=== PATIENT | male | born 1945 | race Caucasian/White ===

== ENCOUNTER 2017-08-25 07:50 | Observation (INO) | payer BC ==
--- NOTE | 2017-08-25 08:05 | Emergency Department Record ---
History of Present Illness - General Chief Complaint: Chest Pain Stated Complaint: CHEST PAIN Time Seen by Provider: 08/25/17 07:58 Source: Patient Mode of Arrival: Ambulatory Limitations: No limitations - History of Present Illness Initial Comments: 72 yo male presents with palpitations, chest heaviness and feeling short of breath. The onset was yesterday at 10am after clearing snow from his driveway. He states he was asymptomatic during his exertion. He noted the onset after coming inside to rest. He feels worse with activity or exertion. He has a history of CAD with a stent. He has a history of afib, prior cardioversion. His machinery mechanic is Dr Elena. He has been working with his doctor recently with new medication changes for his atrial fibrillation. He is on Plavix and Xarelto. No edema. MD Complaint: Chest pain, Other (Palpitations) -: Hour(s) (20) Onset: During exertion Pain Location: Substernal Pain Radiation: None Severity: Moderate Quality: Heaviness Consistency: Intermittent Improves With: Remaining still Worsens With: Exertion, Movement Context: New medications Anginal Symptoms: Dyspnea Treatments Prior to Arrival: None - Related Data Home Medications Medication Instructions Recorded Confirmed Last Taken Amlodipine Besylate 5 mg PO DAILY 08/25/17 08/25/17 Unknown Atorvastatin Calcium 40 mg PO QHS 08/25/17 08/25/17 Unknown Citalopram Hydrobromide [Celexa] 20 mg PO DAILY 08/25/17 08/25/17 Unknown Clopidogrel Bisulfate [Plavix] 75 mg PO DAILY 08/25/17 08/25/17 Unknown Flecainide Acetate 50 mg PO DAILY 08/25/17 08/25/17 Unknown Gabapentin [Neurontin] 600 mg PO TID 08/25/17 08/25/17 Unknown Levothyroxine Sodium 125 mcg PO DAILY 08/25/17 08/25/17 Unknown Rivaroxaban [Xarelto] 20 mg PO DAILY 08/25/17 08/25/17 Unknown Allergies Allergy/AdvReac Type Severity Reaction Status Date / Time NO KNOWN DRUG ALLERGY Allergy no Uncoded 08/25/17 08:05 allergies Review of Systems Constitutional: Denies: Chills, Fever, Night sweats, Weakness Eyes: Denies: Eye discharge, Eye pain, Photophobia, Vision change ENT: Denies: Congestion, Throat pain Respiratory: Reports: Dyspnea. Denies: Cough, Hemoptysis, Stridor, Wheezes Cardiovascular: Reports: Arrhythmia, Chest pain, Dyspnea on exertion, Palpitations. Denies: Edema, Syncope Endocrine: Reports: Fatigue Gastrointestinal: Denies: Abdominal pain, Diarrhea, Nausea, Vomiting Genitourinary: Denies: Dysuria, Frequency, Hematuria Musculoskeletal: Denies: Arthralgia, Back pain, Joint swelling, Myalgia Skin: Denies: Bruising, Change in color, Rash Neurological: Denies: Headache, Numbness, Vertigo, Weakness Psychiatric: Denies: Anxiety Hematological/Lymphatic: Denies: Blood Clots, Easy bleeding, Easy bruising, Swollen glands Past Medical History - SOCIAL HISTORY Smoking Status: Current every day smoker Alcohol Use Comment: weekly Drug Use: None - RESPIRATORY Hx Respiratory Disorders: Yes Hx Asthma: No Hx Bronchitis: No Hx COPD: No Hx Dyspnea: No Hx Pneumonia: No Hx Pulmonary Embolism: No Hx Sleep Apnea: Yes Hx Tuberculosis: No Hx of CPAP: Yes - CARDIOVASCULAR Hx Cardio Disorders: Yes Hx Hypertension: Yes (good control with meds) Hx Irregular Heartbeat: Yes ("missed beat for years") Comment:: hyperlipidemia - NEURO Hx Neuro Disorders: No - GI Hx GI Disorders: Yes Hx Abdominal Pain: No Hx Celiac Disease: No Hx Crohn's Disease: No Hx Diverticulitis: Yes Hx GI Bleed: No Hx Reflux: No Hx Hepatitis/Jaundice: No Hx Hiatal Hernia: No Hx Irritable Bowel: No Hx Liver Disease: No Hx Nausea/Vomiting: No Hx Obstructive Bowel: No Hx Pancreatitis: No Hx Rectal Bleeding: No Hx Ulcer: No Hx Wt Loss/Wt Gain: No Hx of Polyps: Yes (1, 5 yrs ago) - Hx Genitourinary Disorders: No - ENDOCRINE Hx Endocrine Disorders: Yes Hx Diabetes: No Hx Thyroid Disease: Yes (hypo) - MUSCULOSKELETAL Hx Musculoskeletal Disorders: Yes Hx Arthritis: Yes (knee/neck) Hx Back Injury: No Hx Fibromyalgia: No Hx Gout: No Hx Musculoskeletal Disease: No Hx Osteoporosis: No - PSYCH Hx Psych Problems: Yes Hx Anxiety: Yes Hx Behavior Problems: No Hx Depression: No Hx Emotional Abuse: No Hx Sexual Abuse: No Hx Suicide Attempt: No - HEMATOLOGY/ONCOLOGY Hx Hematology/Oncology Disorders: No Family Medical History Hx Alcohol Use: Brother/Sister *Alcohol Comment: brother- Hx HTN: Mother Hx Kidney Disease: Mother Hx Liver Disease: Brother/Sister *Liver Comment: brother Hx Stroke: Father Physical Exam - General General Appearance: Alert, Oriented x3, Cooperative, No acute distress Limitations: No limitations - Head Head exam: Normal inspection - Eye Eye exam: Normal appearance, PERRL. negative: Conjunctival injection - ENT ENT exam: Normal exam, Mucous membranes moist Ear exam: Normal external inspection Nasal Exam: Normal inspection Mouth exam: Normal external inspection Teeth exam: Normal inspection - Neck Neck exam: Normal inspection, Full ROM. negative: Tenderness - Respiratory Respiratory exam: Normal lung sounds bilaterally. negative: Respiratory distress - Cardiovascular Cardiovascular Exam: Irregular rhythm, Tachycardia. negative: Regular rate, Normal rhythm Peripheral Pulses: 2+: Radial (R), Radial (L) - GI/Abdominal GI/Abdominal exam: Soft. negative: Distended, Guarding, Rebound, Rigid, Tenderness - Rectal Rectal exam: Deferred - exam: Deferred - Extremities Extremities exam: Normal inspection, Full ROM, Normal capillary refill. negative: Joint swelling, Pedal edema, Tenderness - Back Back exam: Reports: Normal inspection, Full ROM. Denies: Muscle spasm, Rash noted, Tenderness - Neurological Neurological exam: Alert, Normal gait, Oriented X3 - Psychiatric Psychiatric exam: Normal affect, Normal mood. negative: Agitated, Anxious - Skin Skin exam: Dry, Intact, Normal color, Warm Course - Reevaluation(s) Reevaluation #1: EKG 07:49 Atrial Fibrillation rate of 122, intervals Qt 480, Non specific charley -lateral changes. Prior EKG 10/21/16 was NSR Stress test 10/21/16 Inferior ischemic defect. Patient then had a cath with a stent by Dr Elena. 08/25/17 08:07 08/25/17 08:24 HR improved to 104 atrial fibrillation CBC reviewed. No acute changes 08/25/17 08:29 The CMP and magnesium were reviewed CR is 1.3 with prior CR of 1.2 08/25/17 08:35 The Troponin is normal at 0.01 The CXR was reviewed. No acute process. 08/25/17 08:51 BNP is 2128 I JODY Siddiqi of the admission service The patient will be admitted with a cardiology consult with Dr Elena. Medical Decision Making - Lab Data Result diagrams: 08/25/17 08:04 02/06/18 08:04 Disposition Disposition: Admit Clinical Impression: Atrial fibrillation with rapid ventricular response Chest pain Qualifiers: Chest pain type: other chest pain Qualified Code(s): R07.89 - Other chest pain ; R07.8 - Other chest pain Disposition: Still a Patient at [facility] Decision to Admit: Admit from ER Decision to Admit Date: 08/25/17 Decision to Admit Time: 09:03 Condition: (2) Stable Forms: Patient Portal Access Time of Disposition: 09:03 Quality - Quality Measures Quality Measures: N/A - Blood Pressure Screening Does Patient Have Any of the Following: Active Dx of HTN Blood Pressure Classification: Hypertensive Reading Systolic Measurement: 114 Diastolic Measurement: 99 Screening for High Blood Pressure: Patient Exclusion, Hx of HTN [[id number]]
[2017-08-25 08:08] LABS: BASO % 0.3 % (0-6); EOS % 4.2 % (0-6); GRAN % 72.9 % (47-80); HEMATOCRIT 40.6 % (42.0-52.0); HEMOGLOBIN 13.6 gm/dl (14.0-18.0); LYMPH % 14.4 % (16-45); MEAN CELL VOLUME 87.9 fl (81-97); MEAN CORPUSCULAR HEMOGLOBIN 29.4 pg (27-33); MEAN CORPUSCULAR HGB CONC 33.5 g/dl (32-36); MEAN PLATELET VOLUME 8.3 fl (7.4-10.4); MONO % 8.2 % (0-9); PLATELET COUNT 305 K/uL (130-400); RED BLOOD COUNT 4.62 M/uL (4.40-5.70); RED CELL DISTRIBUTION WIDTH 14.3 % (11.5-14.5); WHITE BLOOD COUNT W/O DIFF 8.9 K/uL (4.2-12.2)
[2017-08-25] MEDS ORDERED: DILTIAZEM HCL 125 MG in 0.9 % SODIUM CHLORIDE 100ML 100 ML IV SCH (08:15)
[2017-08-25 08:22] LABS: BLOOD UREA NITROGEN 24 mg/dL (8-23)
[2017-08-25 08:23] LABS: CREATININE 1.3 mg/dL (0.7-1.2); EST GLOMERULAR FILTRATION RATE 58 mL/min; TOTAL PROTEIN 7.4 g/dL (6.6-8.7)
[2017-08-25 08:25] LABS: GLUCOSE,RANDOM 150 mg/dL (74-109)
[2017-08-25 08:28] LABS: ALB/GLOB RATIO 1.2 (1.1-1.8); ALBUMIN 4.1 g/dL (4.0-5.0); ALKALINE PHOSPHATASE 89 U/L (40-129); ALT/SGPT 25 U/L (<41); AST/SGOT 19 U/L (10.0-50.0)
[2017-08-25 08:47] LABS: INR 1.05; PROTHROMBIN TIME (PATIENT) 11.4 SECONDS (9.5-12.1)
[2017-08-25] MEDS ORDERED: PROPOFOL 10 MG/ML VIAL IV ONE (09:52)
[2017-08-25] MEDS ORDERED: GABAPENTIN 300 MG CAPSULE PO PRN (10:35)
--- NOTE | 2017-08-25 12:58 | History & Physical ---
History of Present Illness - Date of Service Date of Service for History & Physical: 08/25/17 - History of Present Illness Admitting Diagnosis: atrial fibrillation with RVR,chest pain History of Present Illness: 72yo male with CC of palpitations. He has history of atrial fibrillation, htn, VALENTINE with cpap use, hypothyroidism, arthritis. Patient began having heart palpitations and feeling light headed yesterday afternoon after coming inside from shoveling snow. He says he had no chest pain or symptoms while actually shoveling, but after sitting down inside he began to feel lightheaded and like his heart was racing. He became tired and decided to take a nap. He felt better so took it easy the rest of the day. This morning he was feeling ok, but as soon as he got up from bed he had the same light-headed, dizzy feeling. He had felt this way before when he was in afib so came to the ED. While in the ED, he was found to be in afib with rapid rate. No ischemic changes. CBC and CMP were unremarkable. BNP elevated at 2128. CXR showed no acute infiltrate. 1st set of CE returned wnl. Patient started on cardizem drip with improvement in his rate and admitted for further observation and consultation with cardiology. 08/25/17- Patient states he is feeling ok. He says while laying down he doesn't have much light-headedness or palpitations, but any time he gets up out of bed those return. He has some chest heaviness, denies lower extremity swelling. He did have a recent change in his medications. He was going to be swtiching from sotalol to fleicanide however there was a 5 day gap in which he had no medication. His last stress test and heart cath were in october [address] Elena. cardiology: Dr. Elena Travel Screening - Travel/Exposure Within Last 30 Days Have you traveled within the last 30 days?: No Review of Systems Constitutional: Denies: Chills, Fever, Night sweats, Weakness Eyes: Denies: Eye discharge, Eye pain, Photophobia, Vision change ENT: Denies: Congestion, Throat pain Respiratory: Reports: Dyspnea. Denies: Cough, Hemoptysis, Stridor, Wheezes Cardiovascular: Reports: Arrhythmia, Chest pain, Dyspnea on exertion, Palpitations. Denies: Edema, Syncope Endocrine: Reports: Fatigue Gastrointestinal: Denies: Abdominal pain, Diarrhea, Nausea, Vomiting Genitourinary: Denies: Dysuria, Frequency, Hematuria Musculoskeletal: Denies: Arthralgia, Back pain, Joint swelling, Myalgia Skin: Denies: Bruising, Change in color, Rash Neurological: Denies: Headache, Numbness, Vertigo, Weakness Psychiatric: Denies: Anxiety Hematological/Lymphatic: Denies: Blood Clots, Easy bleeding, Easy bruising, Swollen glands Past Medical History - SOCIAL HISTORY Smoking Status: Former smoker Alcohol Use: Occasional Drug Use: None - RESPIRATORY Hx Respiratory Disorders: Yes Hx Asthma: No Hx Bronchitis: No Hx COPD: No Hx Dyspnea: No Hx Pneumonia: No Hx Pulmonary Embolism: No Hx Sleep Apnea: Yes Hx Tuberculosis: No Hx of CPAP: Yes - CARDIOVASCULAR Hx Cardio Disorders: Yes Hx Hypertension: Yes (good control with meds) Hx Irregular Heartbeat: Yes ("missed beat for years") Comment:: hyperlipidemia - NEURO Hx Neuro Disorders: No - GI Hx GI Disorders: Yes Hx Abdominal Pain: No Hx Celiac Disease: No Hx Crohn's Disease: No Hx Diverticulitis: Yes Hx GI Bleed: No Hx Reflux: No Hx Hepatitis/Jaundice: No Hx Hiatal Hernia: No Hx Irritable Bowel: No Hx Liver Disease: No Hx Nausea/Vomiting: No Hx Obstructive Bowel: No Hx Pancreatitis: No Hx Rectal Bleeding: No Hx Ulcer: No Hx Wt Loss/Wt Gain: No Hx of Polyps: Yes (1, 5 yrs ago) - Hx Genitourinary Disorders: No - ENDOCRINE Hx Endocrine Disorders: Yes Hx Diabetes: No Hx Thyroid Disease: Yes (hypo) - MUSCULOSKELETAL Hx Musculoskeletal Disorders: Yes Hx Arthritis: Yes (knee/neck) Hx Back Injury: No Hx Fibromyalgia: No Hx Gout: No Hx Musculoskeletal Disease: No Hx Osteoporosis: No - PSYCH Hx Psych Problems: Yes Hx Anxiety: Yes Hx Behavior Problems: No Hx Depression: No Hx Emotional Abuse: No Hx Sexual Abuse: No Hx Suicide Attempt: No - HEMATOLOGY/ONCOLOGY Hx Hematology/Oncology Disorders: No Family Medical History Any Significant Family History?: Yes Hx Alcohol Use: Brother/Sister *Alcohol Comment: brother- Hx HTN: Mother Hx Kidney Disease: Mother Hx Liver Disease: Brother/Sister *Liver Comment: brother Hx Stroke: Father H&P Meds/Allergies - Allergies Allergies: Allergies Allergy/AdvReac Type Severity Reaction Status Date / Time NO KNOWN DRUG ALLERGY Allergy no Uncoded 08/25/17 08:05 allergies - Home Medications Home Medications Medication Instructions Recorded Confirmed Last Taken Amlodipine Besylate 5 mg PO DAILY 08/25/17 08/25/17 08/25/17 Atorvastatin Calcium 40 mg PO QHS 08/25/17 08/25/17 Unknown Citalopram Hydrobromide [Celexa] 20 mg PO DAILY 08/25/17 08/25/17 Unknown Clopidogrel Bisulfate [Plavix] 75 mg PO DAILY 08/25/17 08/25/17 Unknown Gabapentin [Neurontin] 600 mg PO DAILY PRN 08/25/17 08/25/17 Unknown Levothyroxine Sodium 125 mcg PO DAILY 08/25/17 08/25/17 08/25/17 Rivaroxaban [Xarelto] 20 mg PO QHS 08/25/17 08/25/17 08/25/17 Previous Rx's Medication Instructions Recorded Sotalol HCl [Betapace] 80 mg PO BID tablet 08/26/17 - Active Medications Active Medications: Current Medications Amlodipine Besylate (Norvasc) 5 mg PO DAILY OSMANY Atorvastatin Calcium (Lipitor) 40 mg PO QHS OSMANY Citalopram Hydrobromide (Celexa) 20 mg PO DAILY OSMANY Clopidogrel Bisulfate (Plavix) 75 mg PO DAILY OSMANY Flecainide Acetate (Flecainide Acetate) 50 mg PO BID OSMANY Gabapentin (Neurontin) 600 mg PO DAILY PRN PRN Reason: NERVE PAIN Diltiazem HCl 125 mg/ Sodium (Chloride) 125 mls @ 5 mls/hr IV TITRATE OSMANY; 5 MG /HR PRN Reason: Protocol Last Admin: 08/25/17 08:26 Dose: 5 mg/hr, 5 mls/hr Levothyroxine Sodium (Synthroid) 125 mcg PO DAILYTHY OSMANY Rivaroxaban (Xarelto) 20 mg PO QHS [facility] Physical Exam - Vital Signs Vital Signs: Vital Signs - Last 24 Hrs Temp Pulse Resp BP Pulse Ox 08/25/17 12:07 97.4 F L 79 18 126/78 95 08/25/17 10:07 97.7 F 92 H 16 136/71 97 - General General Appearance: Alert, Oriented x3, Cooperative, No acute distress Limitations: No limitations - Head Head exam: Normal inspection - Eye Eye exam: Normal appearance, PERRL. negative: Conjunctival injection - ENT ENT exam: Normal exam, Mucous membranes moist Ear exam: Normal external inspection Nasal Exam: Normal inspection Mouth exam: Normal external inspection Teeth exam: Normal inspection - Neck Neck exam: Normal inspection, Full ROM. negative: Tenderness - Respiratory Respiratory exam: Normal lung sounds bilaterally. negative: Respiratory distress - Cardiovascular Cardiovascular Exam: Irregular rhythm, Tachycardia. negative: Regular rate, Normal rhythm Peripheral Pulses: 2+: Radial (R), Radial (L) - GI/Abdominal GI/Abdominal exam: Soft. negative: Distended, Guarding, Rebound, Rigid, Tenderness - Rectal Rectal exam: Deferred - exam: Deferred - Extremities Extremities exam: Normal inspection, Full ROM, Normal capillary refill. negative: Joint swelling, Pedal edema, Tenderness - Back Back exam: Reports: Normal inspection, Full ROM. Denies: Muscle spasm, Rash noted, Tenderness - Neurological Neurological exam: Alert, Normal gait, Oriented X3 - Psychiatric Psychiatric exam: Normal affect, Normal mood. negative: Agitated, Anxious - Skin Skin exam: Dry, Intact, Normal color, Warm Results - Labs Result Diagrams: 08/25/17 08:04 08/25/17 08:04 VTE H&P Assessment - Risk for VTE Risk for VTE: Yes Risk Level: High Risk Assessment Date: 08/25/17 Risk Assessment Time: 10:00 VTE Orders Placed or Will Be Placed: Yes Plan - Detailed Diagnosis and Plan (1) Atrial fibrillation with rapid ventricular response Status: Acute Base Code: I48.91 - UNSPECIFIED ATRIAL FIBRILLATION Comment: - improved since starting the cardizem drip. Rate is now between 90- 110bpm. He is anticoagulated with xarelto. Three sets of CE returned wnl. -patient's bilingual trainer was consulted. He recommended cadioversion for patinet, unfortunately patient had eaten lunch already so will get that scheduled for tomorrow afternoon with Dr. Dickens. Patient to be npo at midnight -Dr. Elena discontinued the cardizem drip and restarted his sotalol 80mg po bid -continue xarelto 20mg po qhs -continue cardiac monitoring -vitals q8H (2) Full code status Status: Acute Base Code: Z78.9 - OTHER SPECIFIED HEALTH STATUS Comment: -patient is full code (3) DVT prophylaxis Status: Acute Base Code: [id number] - Comment: 08/25/17- continue patient's xarelto 20mg daily
--- NOTE | 2017-08-25 21:47 | RADIOLOGY REPORT ---
EXAM: CHEST 1 VIEW HISTORY: CHEST PAIN AND DIFFICULTY IN BREATHING. TECHNIQUE: A single AP portable view of the chest. COMPARISON: No prior chest x-ray with which to compare. FINDINGS: Heart size is within normal limits. Lungs appear expanded with no acute infiltrate seen. No pleural effusion or pneumothorax evident. Minor thoracic curve to the right with some hypertrophic spurring in the spine. IMPRESSION: MINOR THORACIC CURVE TO THE RIGHT WITH HYPERTROPHIC SPURRING IN THE SPINE. NO ACUTE INFILTRATE EVIDENT. JOB NUMBER: [id number] [facility]
[2017-08-25] MEDS: SOTALOL HCL 80 MG TABLET PO SCH (22:00)
[2017-08-25] MEDS ORDERED: ATORVASTATIN 20 MG TABLET PO SCH (22:00)
[2017-08-25] MEDS ORDERED: RIVAROXABAN 20 MG TABLET PO SCH (22:00)
[2017-08-25] MEDS ORDERED: FLECAINIDE ACETATE 50 MG TABLET PO SCH (22:00)
[2017-08-26] MEDS ORDERED: LEVOTHYROXINE SODIUM 125 MCG TABLET PO SCH (07:00)
[2017-08-26] MEDS: SOTALOL HCL 80 MG TABLET PO SCH (09:23)
[2017-08-26] MEDS ORDERED: CLOPIDOGREL 75MG TABLET PO SCH (10:00)
[2017-08-26] MEDS ORDERED: AMLODIPINE BESYLATE 5MG TAB PO SCH (10:00)
[2017-08-26] MEDS ORDERED: CITALOPRAM 20 MG TABLET PO SCH (10:00)
--- NOTE | 2017-08-26 15:31 | Discharge Summary ---
Providers Discharge Summary Date: 08/26/17 Date of admission: 08/25/17 09:51 Expected Date of Discharge: 08/26/17 Attending physician: JUMA DREW Primary care physician: SYED MONTIEL D.O. Consults: Consult Orders 08/25/17 12:30 Consult - Cardiology NOW Consulting Provider: JOE RADFORD Physician Instructions: Reason For Exam: afib Does pt have current station superintendent?: Lynn Physical Exam - Vital Signs Vital Signs: Vital Signs - Last 24 Hrs Temp Pulse Pulse Resp BP Pulse Ox 08/26/17 09:00 74 88 18 08/26/17 06:00 88 18 116/71 98 08/26/17 04:07 75 18 103/63 99 08/26/17 01:30 78 18 113/67 98 08/26/17 00:40 73 18 117/63 99 08/25/17 23:30 84 18 111/71 98 08/25/17 22:30 90 18 127/71 08/25/17 21:00 74 18 08/25/17 20:00 97.3 F L 76 18 122/62 97 08/25/17 16:07 98.2 F 81 18 146/70 97 08/25/17 16:06 16 - General General Appearance: Alert, Oriented x3, Cooperative, No acute distress Limitations: No limitations - Head Head exam: Normal inspection - Eye Eye exam: Normal appearance, PERRL. negative: Conjunctival injection - ENT ENT exam: Normal exam, Mucous membranes moist Ear exam: Normal external inspection Nasal Exam: Normal inspection Mouth exam: Normal external inspection Teeth exam: Normal inspection - Neck Neck exam: Normal inspection, Full ROM. negative: Tenderness - Respiratory Respiratory exam: Normal lung sounds bilaterally. negative: Respiratory distress - Cardiovascular Cardiovascular Exam: Normal rhythm, Normal heart sounds, Bradycardia. negative : Regular rate Peripheral Pulses: 2+: Radial (R), Radial (L) - GI/Abdominal GI/Abdominal exam: Soft. negative: Distended, Guarding, Rebound, Rigid, Tenderness - Rectal Rectal exam: Deferred - exam: Deferred - Extremities Extremities exam: Normal inspection, Full ROM, Normal capillary refill. negative: Joint swelling, Pedal edema, Tenderness - Back Back exam: Reports: Normal inspection, Full ROM. Denies: Muscle spasm, Rash noted, Tenderness - Neurological Neurological exam: Alert, Normal gait, Oriented X3 - Psychiatric Psychiatric exam: Normal affect, Normal mood. negative: Agitated, Anxious - Skin Skin exam: Dry, Intact, Normal color, Warm Hospitalization - Hospitalization Admission Diagnosis: atrial fibrillation with RVR,chest pain - Problem List/Discharge Diagnosis (1) Atrial fibrillation with rapid ventricular response Status: Acute Base Code: I48.91 - UNSPECIFIED ATRIAL FIBRILLATION Comment: - patient underwent successful cardioversion today with Dr. Dickens. Symptoms have resolved. -plan to discharge home today and follow up with Dr. Radford in 2-[address] Radford has also placed referral for EP. -discharge home on sotalol 80mg po bid -continue xarelto 20mg daily (2) Full code status Status: Acute Base Code: Z78.9 - OTHER SPECIFIED HEALTH STATUS Comment: -patient is full code (3) DVT prophylaxis Status: Acute Base Code: [id number] - Comment: 08/26/17- continue patient's xarelto 20mg daily - Hospitalization Course Disposition: Home, Self-Care Hospital Course: 72yo male with CC of palpitations. He has history of atrial fibrillation, htn, VALENTINE with cpap use, hypothyroidism, arthritis. Patient began having heart palpitations and feeling light headed yesterday afternoon after coming inside from shoveling snow. He says he had no chest pain or symptoms while actually shoveling, but after sitting down inside he began to feel lightheaded and like his heart was racing. He became tired and decided to take a nap. He felt better so took it easy the rest of the day. This morning he was feeling ok, but as soon as he got up from bed he had the same light-headed, dizzy feeling. He had felt this way before when he was in afib so came to the ED. While in the ED, he was found to be in afib with rapid rate. No ischemic changes. CBC and CMP were unremarkable. BNP elevated at 2128. CXR showed no acute infiltrate. 1st set of CE returned wnl. Patient started on cardizem drip with improvement in his rate and admitted for further observation and consultation with cardiology. 08/25/17- Patient states he is feeling ok. He says while laying down he doesn't have much light-headedness or palpitations, but any time he gets up out of bed those return. He has some chest heaviness, denies lower extremity swelling. He did have a recent change in his medications. He was going to be swtiching from sotalol to fleicanide however there was a 5 day gap in which he had no medication. His last stress test and heart cath were in october [address] Radford. 08/26/17- patient states he is feeling much better since cardioversion this afternoon. States the light-headedness and palpitations and chest heaviness have all resolved. Says he feels back to "normal" and is ready to go home. cardiology: Dr. Radford Procedures: Cardiology Procedures 08/26/17 12:17 EKG NOW 08/26/17 14:37 EKG NOW Condition at Discharge: (2) Stable Discharge Medications - Discharge Medications Home Medications: Ambulatory Orders Amlodipine Besylate 5 mg PO DAILY 08/25/17 [Last Taken 08/25/17] Atorvastatin Calcium 40 mg PO QHS 08/25/17 [Last Taken Unknown] Citalopram Hydrobromide [Celexa] 20 mg PO DAILY 08/25/17 [Last Taken Unknown] Clopidogrel Bisulfate [Plavix] 75 mg PO DAILY 08/25/17 [Last Taken Unknown] Gabapentin [Neurontin] 600 mg PO DAILY PRN 08/25/17 [Last Taken Unknown] Levothyroxine Sodium 125 mcg PO DAILY 08/25/17 [Last Taken 08/25/17] Rivaroxaban [Xarelto] 20 mg PO QHS 08/25/17 [Last Taken 08/25/17] Sotalol HCl [Betapace] 80 mg PO BID tablet 08/26/17 [Last Taken Unknown] Discharge Plan - Discharge Instructions Diet at Discharge: Low Fat, Low Cholesterol, Low Salt Diet Instructions: A-fib (Atrial Fibrillation) (DC), Cardioversion (DC) Additional Instructions: 2 Activity: TOLERATED TAKE IT EASY UNTIL DR RADFORD FOLLOW UP 2 Diet: Low Fat, Low Cholesterol Low Salt Diet 2 Consults: [] 2 Follow Up: []WITH DR RADFORD SEPTEMBER 08, AT 3:15 AT [facility] 2 Dressing/Wound Care: (Type) (Change) 2 Additional: [] Follow up with Dr. Radford in 2-3 weeks....SEP 08, AT 3:15 AT [facility] Resume Sotalol 80mg twice daily and xarelto 20mg daily Stop taking the Fleicanide Please call with any questions or concerns Return to ED for any new or worsening concerns Quality Measures - Quality Measures Quality Measures: Atrial Fibrillation & Atrial Flutter: Chronic Anticoagulation Therapy, Advance Directives, Documentation of Current Medications in Medical Record, Elder Maltreatment Screen and Follow-Up Plan, Screening for High Blood Pressure and F/U Documented - Current Medications Quality Measure: Measure #130: Documentation of Current Medications Documentation of Current Medications: <Current Medications Documented/Reviewed> [G8427] - Blood Pressure Screening Quality Measure: Screening for High Blood Pressure and Follow-Up Documented Does Patient Have Any of the Following: Active Dx of HTN Blood Pressure Classification: Hypertensive Reading Systolic Measurement: 114 Diastolic Measurement: 99 Screening for High Blood Pressure: Patient Exclusion, Hx of HTN [G9744] - Atrial Fibrillation and Atrial Flutter Quality Measure: Atrial Fibrillation & Atrial Flutter: Chronic Anticoagulation Therapy Does Patient Have Any of the Following: No CHADS2 Risk Stratification: Hypertension Risk Stratification Summary: No risk factors or only one moderate risk factor exists. [G8970] Anticoagulation Therapy: <Oral anticoagulant Prescribed> [G8967] - Advance Directives Quality Measure: Measure #47: Care Plan Advance Directives Established: No Advance Directives Information Provided To Patient: No Advance Directives on File: No Living Will: No Power of Paint Maker: Yes Power of Paint Maker Name: Alton Horowitz Advance Care Planning: <Care Plan/Decision Maker Documented; Discussed & Documented> [1120V] - Elder Abuse Suspicion Index Screening: Elder Abuse Suspicion Index Screening Rely on people for bathing, dressing, shopping, banking, etc: No Prevented from getting food, clothes, medication, etc: No Made to feel shamed or threatened by someone: No Forced to sign papers or use money against will: No Feel afraid, touched in ways not wanted or hurt physically: No Poor eye contact, withdrawn, malnourished, cuts or bruises: No Screening Result: Negative result EASI Reference Information: Hui BAZAN, Negrita C, Janice D, Jayy Mora.Development and validation of a tool to assist physicians identification of elder abuse: The Elder Abuse Suspicion Index (EASI ). Journal of Elder Abuse and Neglect, 2008; 20 (3): 276-300. - Elder Maltreatment Screen Quality Measures: Elder Maltreatment Screen and Follow-Up Plan Elder Maltreatment Screen: <Negative, No Follow-Up Plan Required> [G0834]
--- NOTE | 2017-08-26 20:32 | Medical Records Consult ---
DATE OF CONSULTATION: 08/25/17 REFERRING PHYSICIAN: MANFRED LANGE PA-C. REASON FOR CONSULTATION: ATRIAL FIBRILLATION WITH RAPID VENTRICULAR RESPONSE. HISTORY OF PRESENT ILLNESS: Mr. Krishnamurthy is a delightful 72-year-old gentleman with a history of coronary artery disease as well as paroxysmal atrial fibrillation. The patient had extensive angioplasty of the right coronary artery with a drug-eluting stent in October of 2016. He was diagnosed with atrial fibrillation back in June of 2017 and had a CABRERA cardioversion at [facility]. The patient was then started on Sotalol 18 mg b.i.d., on which he was maintaining sinus rhythm. The patient also has been on Xarelto 20 mg daily. In his last office visit on 08/11/2017, I had discontinued the Sotalol because of his symptomatic bradycardia and started him on Multaq, however, the Multaq was too expensive, so we started him on Flecainide 50 mg b.i.d. The patient, however, did not get his medication for five days and yesterday after shoveling the snow, he started having shortness of breath and palpitations as well as lightheadedness and presented to the Emergency Department. In the E.D., he was found to be in atrial fibrillation with rapid ventricular response a ventricular rate of around 130 beats per minute. The patient was admitted to the hospital and started on Diltiazem infusion and since then his heart rate has been better controlled but he is still symptomatic with being lightheaded as well as short of breath. His laboratory data has been within normal limits except for proBNP, which is elevated in the 2100 range. His cardiac enzymes have been normal as well. PAST MEDICAL HISTORY: The patient has a history of hypertension, coronary artery disease, hyperlipidemia, and paroxysmal atrial fibrillation. ALLERGIES: NO KNOWN DRUG ALLERGIES. HOME MEDICATIONS: The patient is on: Lipitor 40 mg daily Levothyroxine 125 mcg daily Flonase Allergy 50 mcg/actuation Nasal Lindsay Suspension Gabapentin 600 mg t.i.d. Amlodipine 5 mg daily Cyclobenzaprine 10 mg t.i.d. p.r.n. Clopidogrel 75 mg daily Xarelto 20 mg daily Flecainide 50 mg b.i.d. SOCIAL HISTORY: The patient lives by himself and is a fairly active gentleman. He spends the christie on [place]. The patient denies any alcohol use or any illicit drug use. He smokes cigars. REVIEW OF SYSTEMS: The patient denies any fevers or chills. Denies any bleeding complications. Complains of palpitations and lightheadedness and dizziness, as explained in the HPI. The patient doesn't have any history of depression or anxiety. PHYSICAL EXAMINATION: GENERAL: Mr. Krishnamurthy is a 72-year-old gentleman who is alert and oriented x3. HEENT: On HEENT examination, he is normocephalic/atraumatic. Sclera and conjunctiva are unremarkable. Extraocular muscles are intact. NECK: Neck is supple. CVS: On CVS examination, he has irregularly regular heart rhythm. RESPIRATORY: Respiratory examination reveals that lungs are clear to auscultation bilaterally. NEUROLOGIC: Neurologic examination is nonfocal. LABORATORY DATA: Shows his electrolytes, renal function, and hepatic function to be within normal limits. His hemoglobin is stable at 13.2. White count is not elevated. His proBNP is elevated at 2100. Troponin has been less than 0.01. CHEST X-RAY: Chest x-ray doesn't show any vascular congestion or any other acute process. ASSESSMENT AND PLAN: 1. PAROXYSMAL ATRIAL FIBRILLATION: The patient has paroxysmal atrial fibrillation with rapid ventricular response. He was admitted and was started on Diltiazem, rightly so, and that has controlled his heart rate significantly. Since the patient had extensive angioplasty of the right coronary artery, I would prefer him not to be on Class 1C agents and the Flecainide will be discontinued. I am going to put him back on Sotalol 80 mg b.i.d. and would consider and cardioversion. The patient's CHADS-VASc score is 3 (age, coronary artery disease, and hypertension). Since he has been on Xarelto for a long time , he would not need transesophageal echocardiography. I was planning to do cardioversion today, however, he has already eaten his lunch and so I will schedule him for tomorrow in the afternoon with Dr. Dickens. The patient also has obstructive sleep apnea. He has been using his CPAP fairly regularly. however, he tells me that his CPAP is more than ten years old and he hasn't had any CPAP titration study done. I am going to schedule him for an outpatient CPAP titration study as well. The procedure of cardioversion possible complications and outcomes were explained to the patient who is understanding and wants to proceed. I am also going to refer him to Dr. Macdonald as an outpatient for evaluation for A-fib ablation and will arrange for that. The patient blood pressure is adequately controlled with the current regimen, which will be continued. Continue thyroid supplementation, as his TSH has been within normal limits. He is stable from coronary artery disease standpoint. Thank you very much for involving me in the management of Mr. Krishnamurthy. If you have any questions or concerns, please do not hesitate to call me. JOB NUMBER: [id number] MTDD
--- NOTE | 2017-08-26 22:15 | Operative Note ---
DATE OF PROCEDURE: 08/26/17 TUTOR: SUMIT PARTIDA M.D. HISTORY: Mr. Krishnamurthy is 72 years old, undergoing elective cardioversion for paroxysmal atrial fibrillation. Mr. Krishnamurthy is a patient of Dr. Saad Elena. He is currently on Xarelto 20 mg daily and Flecainide 50 mg b.i.d. His telemetry demonstrates atrial fibrillation with controlled rates. PROCEDURE: After informed consent, the patient was sedated by Anesthesia. The patient underwent 200 joules biphasic countershock x1 with successful conversion of atrial fibrillation to sinus rhythm with controlled rates. He was observed postprocedure before being transferred to the regular Medical Floor for discharge. FINAL IMPRESSION: 1. SUCCESSFUL CARDIOVERSION OF ATRIAL FIBRILLATION TO SINUS RHYTHM. 2. CONTINUATION OF XARELTO AND FLECAINIDE PREVIOUSLY WRITTEN. 3. FOLLOW-UP WITH DR. ELENA IN 2 TO 3 WEEKS IN [facility]. JOB NUMBER: [id number] MTDD
== END 2017-08-26 16:55 | disposition home or self-care (01) ==
LOC: ER 07:50 → MEDSURG 09:51
PROVIDERS: ADMIT Internal Medicine; ATTEND Internal Medicine
DX: I48.0 Paroxysmal atrial fibrillation (principal); I10 Essential (primary) hypertension; E03.9 Hypothyroidism, unspecified; G47.33 Obstructive sleep apnea (adult) (pediatric); E78.5 Hyperlipidemia, unspecified; R07.89 Other chest pain
CPT/HCPCS: 92960; 00410; 99285 ×2; 83735; 85025; 85610; 80053; 84484; 83880; 71045; 93005 ×2; 93010; G0378 ×2; 99217; 99220

== ENCOUNTER 2017-10-09 08:01 | Emergency (ER) | payer BC ==
[2017-10-09] MEDS ORDERED: IPRATROPIUM/ALBUTEROL (0.5MG/3MG) NEB INH ONE (08:28)
[2017-10-09] MEDS ORDERED: METHYLPREDNISOLONE PF 125MG/VIAL IVP ONE (08:29)
--- NOTE | 2017-10-09 08:40 | Emergency Department Record ---
History of Present Illness - General Chief Complaint: Shortness of breath Stated Complaint: SHORTNESS OF BREATH/COUGHING Time Seen by Provider: 10/09/17 08:19 Source: Patient Mode of Arrival: Ambulatory Limitations: No limitations - History of Present Illness Initial Comments: pt has been short of breath for a few days since cleaning out a shed that had a lot of dust, mice droppings and raccoon droppings pt has wheezing, coughing and sob. pt denies cp, leg pain MD Complaint: Cough, Shortness of breath Onset/Timin -: Days(s) Severity: Mild Severity scale (1-10): 1 Quality: Aching Consistency: Constant Improves With: Nothing Worsens With: Nothing Context: Smoke/fume exposure Associated Symptoms: Cough Treatments Prior to Arrival: None - Related Data Home Oxygen Therapy: No Previous Rx's Medication Instructions Recorded Sotalol HCl [Betapace] 80 mg PO BID tablet 08/26/17 Amoxicillin/Potassium Clav 1 tab PO BID #20 tablet 10/09/17 [Augmentin 875Mg/125Mg] Allergies Allergy/AdvReac Type Severity Reaction Status Date / Time NO KNOWN DRUG ALLERGY Allergy no Uncoded 10/09/17 08:12 allergies Travel Screening - Travel/Exposure Within Last 30 Days Have you traveled within the last 30 days?: No - Travel/Exposure Within Last Year Have you traveled outside the [place] in the last year?: No - Additonal Travel Details Have you been exposed to anyone with a communicable illness?: No - Travel Symptoms Symptom Screening: None Review of Systems Reviewed: No additional complaints except as noted below Constitutional: Reports: As per HPI. Denies: Chills, Fever, Malaise, Night sweats, Weakness, Weight change Eyes: Reports: As per HPI. Denies: Eye discharge, Eye pain, Photophobia, Vision change ENT: Reports: As per HPI. Denies: Congestion, Dental pain, Ear pain, Epistaxis , Hearing loss, Throat pain Respiratory: Reports: As per HPI. Denies: Cough, Dyspnea, Hemoptysis, Stridor, Wheezes Cardiovascular: Reports: As per HPI. Denies: Arrhythmia, Chest pain, Dyspnea on exertion, Edema, Murmurs, Orthopnea, Palpitations, Paroxysmal nocturnal dyspnea, Rheumatic Fever, Syncope Endocrine: Reports: As per HPI. Denies: Fatigue, Heat or cold intolerance, Polydipsia, Polyuria Gastrointestinal: Reports: As per HPI. Denies: Abdominal pain, Constipation, Diarrhea, Hematemesis, Hematochezia, Melena, Nausea, Vomiting Genitourinary: Reports: As per HPI. Denies: Dysuria, Frequency, Hematuria, Incontinence, Retention, Testicular pain, Testicular mass, Urgency Musculoskeletal: Reports: As per HPI. Denies: Arthralgia, Back pain, Gout, Joint swelling, Myalgia, Neck pain Skin: Reports: As per HPI. Denies: Bruising, Change in color, Change in hair/ nails, Lesions, Pruritus, Rash Neurological: Reports: As per HPI. Denies: Abnormal gait, Confusion, Headache, Numbness, Paresthesias, Seizure, Tingling, Tremors, Vertigo, Weakness Psychiatric: Reports: As per HPI. Denies: Anxiety, Auditory hallucinations, Depression, Homicidal thoughts, Suicidal thoughts, Visual hallucinations Hematological/Lymphatic: Reports: As per HPI. Denies: Anemia, Blood Clots, Easy bleeding, Easy bruising, Swollen glands Past Medical History - SOCIAL HISTORY Smoking Status: Former smoker Alcohol Use: None Drug Use: None - RESPIRATORY Hx Respiratory Disorders: Yes Hx Asthma: No Hx Bronchitis: No Hx COPD: No Hx Dyspnea: No Hx Pneumonia: No Hx Pulmonary Embolism: No Hx Sleep Apnea: Yes Hx Tuberculosis: No Hx of CPAP: Yes - CARDIOVASCULAR Hx Cardio Disorders: Yes Hx Hypertension: Yes (good control with meds) Hx Irregular Heartbeat: Yes ("missed beat for years", A-fib cardioverted X2 since 04/2017) Comment:: hyperlipidemia - NEURO Hx Neuro Disorders: No Hx Dizziness: Yes (recent with a fib) - GI Hx GI Disorders: Yes Hx Abdominal Pain: No Hx Celiac Disease: No Hx Crohn's Disease: No Hx Diverticulitis: Yes Hx GI Bleed: No Hx Reflux: No Hx Hepatitis/Jaundice: No Hx Hiatal Hernia: No Hx Irritable Bowel: No Hx Liver Disease: No Hx Nausea/Vomiting: No Hx Obstructive Bowel: No Hx Pancreatitis: No Hx Rectal Bleeding: No Hx Ulcer: No Hx Wt Loss/Wt Gain: No Hx of Polyps: Yes (1, 5 yrs ago) - Hx Genitourinary Disorders: No - ENDOCRINE Hx Endocrine Disorders: Yes Hx Diabetes: No Hx Thyroid Disease: Yes (hypo) - MUSCULOSKELETAL Hx Musculoskeletal Disorders: Yes Hx Arthritis: Yes (knee/neck) Hx Back Injury: No Hx Fibromyalgia: No Hx Gout: No Hx Musculoskeletal Disease: No Hx Osteoporosis: No - PSYCH Hx Psych Problems: Yes Hx Anxiety: Yes Hx Behavior Problems: No Hx Depression: No Hx Emotional Abuse: No Hx Sexual Abuse: No Hx Suicide Attempt: No - HEMATOLOGY/ONCOLOGY Hx Hematology/Oncology Disorders: No Hx Bruising: Yes (on thinners) Family Medical History Any Significant Family History?: Yes Hx Alcohol Use: Brother/Sister *Alcohol Comment: brother- Hx HTN: Mother Hx Kidney Disease: Mother Hx Liver Disease: Brother/Sister *Liver Comment: brother Hx Stroke: Father Physical Exam - General General Appearance: Alert, Oriented x3, Cooperative, Mild distress - Head Head exam: Normal inspection - Eye Eye exam: Normal appearance, PERRL, EOMI Pupils: Normal accommodation - ENT ENT exam: Normal exam, Mucous membranes moist, Normal external ear exam, Normal orophraynx Ear exam: Normal external inspection. negative: External canal tenderness Nasal Exam: Normal inspection. negative: Discharge, Sinus tenderness Mouth exam: Normal external inspection, Tongue normal Teeth exam: Normal inspection. negative: Dental caries Throat exam: Normal inspection. negative: Tonsillar erythema, Tonsillar exudate - Neck Neck exam: Normal inspection, Full ROM. negative: Tenderness - Respiratory Respiratory exam: Wheezes. negative: Respiratory distress - Cardiovascular Cardiovascular Exam: Regular rate, Normal rhythm, Normal heart sounds - GI/Abdominal GI/Abdominal exam: Soft, Normal bowel sounds. negative: Tenderness - Rectal Rectal exam: Deferred - exam: Deferred - Extremities Extremities exam: Normal inspection, Full ROM, Normal capillary refill. negative: Tenderness - Back Back exam: Reports: Normal inspection, Full ROM. Denies: Muscle spasm, Rash noted, Tenderness - Neurological Neurological exam: Alert, CN II-XII intact, Normal gait, Oriented X3 - Psychiatric Psychiatric exam: Normal affect, Normal mood - Skin Skin exam: Dry, Intact, Normal color, Warm Course Vital Signs 10/09/17 08:05 Temperature 98.4 F Pulse Rate 64 Respiratory 22 Rate Blood Pressure 147/81 Pulse Ox 99 Medical Decision Making - Lab Data Result diagrams: 10/09/17 08:10 10/09/17 08:10 Disposition Disposition: Discharge Clinical Impression: Pneumonia Qualifiers: Pneumonia type: due to unspecified organism Laterality: bilateral Lung location : unspecified part of lung Qualified Code(s): J18.9 - Pneumonia, unspecified organism Disposition: Home, Self-Care Condition: (1) Good Instructions: Pneumonitis (ED) Additional Instructions: follow up this week with family doctor. return sooner if worse. have further evaluation of chest to rule out other etiologies. Prescriptions: Amoxicillin/Potassium Clav [Augmentin 875Mg/125Mg] 1 tab PO BID #20 tablet Forms: Patient Portal Access Quality - Quality Measures Quality Measures: N/A - Blood Pressure Screening Does Patient Have Any of the Following: No Blood Pressure Classification: Pre-Hypertensive BP Reading Systolic Measurement: 147 Diastolic Measurement: 81 Screening for High Blood Pressure: < Pre-Hypertensive BP, F/U Documented > [ G8950] Pre-Hypertensive Follow-up Interventions: Follow-up with rescreen every year.
[2017-10-09 08:42] LABS: HEMATOCRIT 34.8 % (42.0-52.0); HEMOGLOBIN 11.1 gm/dl (14.0-18.0); MEAN CELL VOLUME 90.4 fl (81-97); MEAN CORPUSCULAR HEMOGLOBIN 28.8 pg (27-33); MEAN CORPUSCULAR HGB CONC 31.9 g/dl (32-36); MEAN PLATELET VOLUME 9.2 fl (7.4-10.4); PLATELET COUNT 249 K/uL (130-400); RED BLOOD COUNT 3.85 M/uL (4.40-5.70); RED CELL DISTRIBUTION WIDTH 14.1 % (11.5-14.5); WHITE BLOOD COUNT W/O DIFF 5.7 K/uL (4.2-12.2)
[2017-10-09 09:02] LABS: ALB/GLOB RATIO 1.1 (1.1-1.8); ALBUMIN 3.7 g/dL (4.0-5.0); ALKALINE PHOSPHATASE 88 U/L (40-129); ALT/SGPT 18 U/L (<41); AST/SGOT 18 U/L (10.0-50.0); BLOOD UREA NITROGEN 20 mg/dL (8-23); CREATININE 1.1 mg/dL (0.7-1.2); EST GLOMERULAR FILTRATION RATE > 60 mL/min; GLUCOSE,RANDOM 110 mg/dL (74-109); TOTAL PROTEIN 7.1 g/dL (6.6-8.7)
--- NOTE | 2017-10-10 11:25 | CT ANGIOGRAM REPORT ---
DATE: 10/09/2017. EXAM: CT ANGIOGRAM OF THE CHEST. HISTORY: Difficulty breathing. TECHNIQUE: CT angiogram of the chest was preformed following intravenous administration of 87 mL of Omnipaque 350 contrast. Axial images were obtained with coronal and sagittal maximum-intensity projection image reconstructions. COMPARISON: None. FINDINGS: The mediastinal vasculature enhances normally. There is no intraluminal filling defect to suggestion pulmonary embolus. The distal arterial branches are not well opacified. Moderate motion artifact. No CTA evidence for thoracic aortic aneurysm or dissection. However, there is bulky bilateral hilar and mediastinal adenopathy of indeterminate etiology. Cardiomegaly. Coronary artery calcification. Limited evaluation of the upper abdomen shows a prominent, enlarged appearance to the adrenal glands bilaterally. Partially exophytic right renal cyst measuring 2.7 x 2.3 cm. Osseous structures are grossly intact. No pneumothorax. The visualized airways are patent. Perihilar air space opacities, which may reflect nonspecific pneumonitis. Scarring in the lung bases. No effusion. IMPRESSION: 1. NEGATIVE FOR PULMONARY EMBOLUS, THORACIC AORTIC ANEURYSM, OR DISSECTION. 2. HOWEVER, THERE IS MEDIASTINAL AND HILAR ADENOPATHY WITH PERIHILAR OPACITIES. FINDINGS MAY REFLECT PNEUMONITIS WITH REACTIVE ADENOPATHY. OTHER ETIOLOGIES ARE NOT EXCLUDED, AND FOLLOWUP IS RECOMMENDED. 3. CARDIOMEGALY. CORONARY ARTERY CALCIFICATION. 4. 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 JOB NUMBER: [id number] MTDD
== END 2017-10-09 11:10 | disposition home or self-care (01) ==
LOC: ER 08:01
DX: J18.9 Pneumonia, unspecified organism (principal); R06.00 Dyspnea, unspecified; I10 Essential (primary) hypertension; Z87.891 Personal history of nicotine dependence
CPT/HCPCS: 99284 ×2; 96374; 80053; 84484; 85379; 85027; 83880; 71275; 94640; 93005; 93010; Q9967; J2930

== ENCOUNTER 2018-04-03 08:59 | Emergency (ER) | payer BC ==
[2018-04-03] MEDS ORDERED: TRANEXAMIC ACID 1,000 MG/10 ML ML TOP ONE (09:07)
--- NOTE | 2018-04-03 09:12 | Emergency Department Record ---
History of Present Illness - General Chief Complaint: Laceration(s) Stated Complaint: CUT ON LT EAR Time Seen by Provider: 04/03/18 09:01 Source: Patient Mode of Arrival: Ambulatory Limitations: No limitations - History of Present Illness Initial Commments: 73 yo male presents with a laceration to the left ear. He was shaving the hair on the ear this morning. He is on Xarelto and Plavix. No other injuries or recent health problems. -: Minutes(s) Place: Home Context: Accidental, Sharp object use Associated Symptoms: None Treatments Prior to Arrival: Bandage - Jazmyn Coma Scale Eye Response: (4) Open spontaneously Motor Response: (6) Obeys commands Verbal Response: (5) Oriented Jazmyn Total: 15 - Related Data Hx Tetanus Toxoid Vaccination: Yes Patient Tetanus UTD (within 5 yrs): No Previous Rx's Medication Instructions Recorded Sotalol HCl [Betapace] 80 mg PO BID tablet 08/26/17 Allergies Allergy/AdvReac Type Severity Reaction Status Date / Time NO KNOWN DRUG ALLERGY Allergy Mild no Uncoded 04/03/18 09:02 allergies Review of Systems Constitutional: Denies: Chills, Fever, Malaise, Weakness Eyes: Denies: Eye discharge ENT: Denies: Congestion, Throat pain Respiratory: Denies: Cough Cardiovascular: Denies: Chest pain, Syncope Endocrine: Denies: Fatigue Gastrointestinal: Denies: Abdominal pain, Diarrhea, Nausea, Vomiting Genitourinary: Denies: Dysuria, Frequency, Hematuria Musculoskeletal: Denies: Arthralgia, Myalgia Skin: Denies: Bruising, Change in color, Rash Neurological: Denies: Headache Psychiatric: Denies: Anxiety Hematological/Lymphatic: Denies: Easy bleeding, Easy bruising Past Medical History - SOCIAL HISTORY Smoking Status: Former smoker Drug Use: None - RESPIRATORY Hx Respiratory Disorders: Yes Hx Asthma: No Hx Bronchitis: No Hx COPD: No Hx Dyspnea: No Hx Pneumonia: No Hx Pulmonary Embolism: No Hx Sleep Apnea: Yes Hx Tuberculosis: No Hx of CPAP: Yes - CARDIOVASCULAR Hx Cardio Disorders: Yes Hx Hypertension: Yes (good control with meds) Hx Irregular Heartbeat: Yes ("missed beat for years", A-fib cardioverted X2 since 04/2017) Comment:: hyperlipidemia - NEURO Hx Neuro Disorders: No Hx Dizziness: Yes (recent with a fib) - GI Hx GI Disorders: Yes Hx Abdominal Pain: No Hx Celiac Disease: No Hx Crohn's Disease: No Hx Diverticulitis: Yes Hx GI Bleed: No Hx Reflux: No Hx Hepatitis/Jaundice: No Hx Hiatal Hernia: No Hx Irritable Bowel: No Hx Liver Disease: No Hx Nausea/Vomiting: No Hx Obstructive Bowel: No Hx Pancreatitis: No Hx Rectal Bleeding: No Hx Ulcer: No Hx Wt Loss/Wt Gain: No Hx of Polyps: Yes (1, 5 yrs ago) - Hx Genitourinary Disorders: No - ENDOCRINE Hx Endocrine Disorders: Yes Hx Diabetes: No Hx Thyroid Disease: Yes (hypo) - MUSCULOSKELETAL Hx Musculoskeletal Disorders: Yes Hx Arthritis: Yes (knee/neck) Hx Back Injury: No Hx Fibromyalgia: No Hx Gout: No Hx Musculoskeletal Disease: No Hx Osteoporosis: No - PSYCH Hx Psych Problems: Yes Hx Anxiety: Yes Hx Behavior Problems: No Hx Depression: No Hx Emotional Abuse: No Hx Sexual Abuse: No Hx Suicide Attempt: No - HEMATOLOGY/ONCOLOGY Hx Hematology/Oncology Disorders: No Hx Bruising: Yes (on thinners) Family Medical History Hx Alcohol Use: Brother/Sister *Alcohol Comment: brother- Hx HTN: Mother Hx Kidney Disease: Mother Hx Liver Disease: Brother/Sister *Liver Comment: brother Hx Stroke: Father Physical Exam - General General Appearance: Alert, Oriented x3, Cooperative, No acute distress Limitations: No limitations - Head Head exam: Normal inspection - Eye Eye exam: Normal appearance. negative: Conjunctival injection - ENT ENT exam: Normal exam Ear exam: Other (1cm very thin superficial laceration). negative: Normal external inspection Mouth exam: Normal external inspection Teeth exam: Normal inspection Throat exam: Normal inspection - Neck Neck exam: Normal inspection - Neurological Neurological exam: Alert, Oriented X3 - Psychiatric Psychiatric exam: Normal affect, Normal mood - Skin Skin exam: Dry, Intact, Normal color, Warm Course Vital Signs 04/03/18 09:05 Pulse Rate [ 64 Pulse Ox Probe] Respiratory 20 Rate Blood Pressure 154/72 [Left Arm] Pulse Ox 98 - Reevaluation(s) Reevaluation #1: 04/03/18 09:19 The area was examined and cleaned TXA topical with ThrombiGel was placed on the small laceration with good results 04/03/18 09:34 Tetanus updated No bleeding at DC Disposition Disposition: Discharge Clinical Impression: Laceration of left earlobe Qualifiers: Encounter type: initial encounter Qualified Code(s): S01.312A - Laceration without foreign body of left ear, initial encounter Disposition: Home, Self-Care Condition: (1) Good Instructions: Laceration (ED) Additional Instructions: Return if you have pain, bleeding or any concerns Leave the bandage on for 24 hours then shower and gently remove Forms: Patient Portal Access Time of Disposition: 09:20 Quality - Quality Measures Quality Measures: N/A - Blood Pressure Screening Does Patient Have Any of the Following: Active Dx of HTN Blood Pressure Classification: Hypertensive Reading Systolic Measurement: 154 Diastolic Measurement: 72 Screening for High Blood Pressure: Patient Exclusion, Hx of HTN [G9744]
[2018-04-03] MEDS ORDERED: Diph,Pert(Acell),Tet Vac 0.5 ML SYR IM ONE (09:22)
== END 2018-04-03 09:38 | disposition home or self-care (01) ==
LOC: ER 08:59
DX: S01.312A Laceration without foreign body of left ear, initial encounter (principal); W26.8XXA Contact with other sharp object(s), not elsewhere classified, initial encounter; I10 Essential (primary) hypertension; Y92.009 Unspecified place in unspecified non-institutional (private) residence as the place of occurrence of the external cause; Z87.891 Personal history of nicotine dependence
CPT/HCPCS: 99282; 96372; 99283; J3490; 90715

== ENCOUNTER 2018-09-29 08:44 | Emergency (ER) | payer BC ==
--- NOTE | 2018-09-29 09:19 | Emergency Department Record ---
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 Zurdo Elena. Complaint: Cough, Shortness of breath Onset/Timin -: Week(s) Severity: Moderate Consistency: Intermittent, Getting worse Improves With: Rest Worsens With: Exertion Associated Symptoms: Cough - Related Data Home Oxygen Therapy: No Home Medications Medication Instructions Recorded Confirmed Last Taken Fluocinolone Acetonide Oil [Flac 20 ml OT ASDIR 09/29/18 09/29/18 Unknown Otic Oil] Fluticasone Propionate [Flonase] 1 spray EACH NARES DAILY 09/29/18 09/29/18 Previous Rx's Medication Instructions Recorded Sotalol HCl [Betapace] 80 mg PO BID tablet 08/26/17 Amoxicillin 500Mg Capsule [Amoxil] 500 mg PO TID #30 tab 09/29/18 Allergies Allergy/AdvReac Type Severity Reaction Status Date / Time NO KNOWN DRUG ALLERGY Allergy Mild no Uncoded 09/29/18 08:48 allergies Travel Screening - Travel/Exposure Within Last 30 Days Have you traveled within the last 30 days?: No - Travel/Exposure Within Last Year Have you traveled outside the [place] in the last year?: No - Additonal Travel Details Have you been exposed to anyone with a communicable illness?: No - Travel Symptoms Symptom Screening: None Review of Systems Reviewed: No additional complaints except as noted below Constitutional: Reports: As per HPI. Denies: Chills, Fever, Malaise, Night sweats, Weakness, Weight change Eyes: Reports: As per HPI. Denies: Eye discharge, Eye pain, Photophobia, Vision change ENT: Reports: As per HPI, Congestion. Denies: Dental pain, Ear pain, Epistaxis , Hearing loss, Throat pain Respiratory: Reports: As per HPI, Cough. Denies: Dyspnea, Hemoptysis, Stridor, Wheezes Cardiovascular: Reports: As per HPI. Denies: Arrhythmia, Chest pain, Dyspnea on exertion, Edema, Murmurs, Orthopnea, Palpitations, Paroxysmal nocturnal dyspnea, Rheumatic Fever, Syncope Endocrine: Reports: As per HPI. Denies: Fatigue, Heat or cold intolerance, Polydipsia, Polyuria Gastrointestinal: Reports: As per HPI. Denies: Abdominal pain, Constipation, Diarrhea, Hematemesis, Hematochezia, Melena, Nausea, Vomiting Genitourinary: Reports: As per HPI. Denies: Dysuria, Frequency, Hematuria, Incontinence, Retention, Testicular pain, Testicular mass, Urgency Musculoskeletal: Reports: As per HPI. Denies: Arthralgia, Back pain, Gout, Joint swelling, Myalgia, Neck pain Skin: Reports: As per HPI. Denies: Bruising, Change in color, Change in hair/ nails, Lesions, Pruritus, Rash Neurological: Reports: As per HPI. Denies: Abnormal gait, Confusion, Headache, Numbness, Paresthesias, Seizure, Tingling, Tremors, Vertigo, Weakness Psychiatric: Reports: As per HPI. Denies: Anxiety, Auditory hallucinations, Depression, Homicidal thoughts, Suicidal thoughts, Visual hallucinations Hematological/Lymphatic: Reports: As per HPI. Denies: Anemia, Blood Clots, Easy bleeding, Easy bruising, Swollen glands Past Medical History - SOCIAL HISTORY Smoking Status: Former smoker Alcohol Use: Occasional Drug Use: None - RESPIRATORY Hx Respiratory Disorders: Yes Hx Asthma: No Hx Bronchitis: No Hx COPD: No Hx Dyspnea: No Hx Pneumonia: No Hx Pulmonary Embolism: No Hx Sleep Apnea: Yes Hx Tuberculosis: No Hx of CPAP: Yes - CARDIOVASCULAR Hx Cardio Disorders: Yes Hx Hypertension: Yes (good control with meds) Hx Irregular Heartbeat: Yes ("missed beat for years", A-fib cardioverted X2 since 04/2017) Comment:: hyperlipidemia - NEURO Hx Neuro Disorders: Yes Hx Dizziness: Yes (recent with a fib) - GI Hx GI Disorders: Yes Hx Abdominal Pain: No Hx Celiac Disease: No Hx Crohn's Disease: No Hx Diverticulitis: Yes Hx GI Bleed: No Hx Reflux: No Hx Hepatitis/Jaundice: No Hx Hiatal Hernia: No Hx Irritable Bowel: No Hx Liver Disease: No Hx Nausea/Vomiting: No Hx Obstructive Bowel: No Hx Pancreatitis: No Hx Rectal Bleeding: No Hx Ulcer: No Hx Wt Loss/Wt Gain: No Hx of Polyps: Yes (1, 5 yrs ago) - Hx Genitourinary Disorders: No - ENDOCRINE Hx Endocrine Disorders: Yes Hx Diabetes: No Hx Thyroid Disease: Yes (hypo) - MUSCULOSKELETAL Hx Musculoskeletal Disorders: Yes Hx Arthritis: Yes (knee/neck) Hx Back Injury: No Hx Fibromyalgia: No Hx Gout: No Hx Musculoskeletal Disease: No Hx Osteoporosis: No - PSYCH Hx Psych Problems: Yes Hx Anxiety: Yes Hx Behavior Problems: No Hx Depression: No Hx Emotional Abuse: No Hx Sexual Abuse: No Hx Suicide Attempt: No - HEMATOLOGY/ONCOLOGY Hx Hematology/Oncology Disorders: Yes Hx Bruising: Yes (on thinners) Family Medical History Any Significant Family History?: Yes Hx Alcohol Use: Brother/Sister *Alcohol Comment: brother- Hx HTN: Mother Hx Kidney Disease: Mother Hx Liver Disease: Brother/Sister *Liver Comment: brother Hx Stroke: Father Physical Exam - General General Appearance: Alert, Oriented x3, Cooperative, No acute distress - Head Head exam: Normal inspection - Eye Eye exam: Normal appearance, PERRL Pupils: Normal accommodation - ENT ENT exam: Normal exam, Mucous membranes moist, Normal external ear exam, Normal orophraynx, TM's normal bilaterally Ear exam: Normal external inspection. negative: External canal tenderness Nasal Exam: Normal inspection. negative: Discharge, Sinus tenderness Mouth exam: Normal external inspection, Tongue normal Teeth exam: Normal inspection. negative: Dental caries Throat exam: Normal inspection. negative: Tonsillar erythema, Tonsillar exudate - Neck Neck exam: Normal inspection, Full ROM. negative: Tenderness - Respiratory Respiratory exam: Normal lung sounds bilaterally. negative: Respiratory distress - Cardiovascular Cardiovascular Exam: Regular rate, Normal rhythm, Normal heart sounds - GI/Abdominal GI/Abdominal exam: Soft, Normal bowel sounds. negative: Tenderness - Rectal Rectal exam: Deferred - exam: Deferred - Extremities Extremities exam: Normal inspection, Full ROM, Normal capillary refill. negative: Tenderness - Back Back exam: Reports: Normal inspection, Full ROM. Denies: Muscle spasm, Rash noted, Tenderness - Neurological Neurological exam: Alert, Normal gait, Oriented X3, Reflexes normal - Psychiatric Psychiatric exam: Normal affect, Normal mood - Skin Skin exam: Dry, Intact, Normal color, Warm Course Vital Signs 09/29/18 08:55 Temperature 97.7 F Pulse Rate 55 L Respiratory 20 Rate Blood Pressure 140/96 Pulse Ox 94 L Medical Decision Making - Data Complexity MDM Data: Labs Ordered and/or Reviewed (trop neg), X-Ray Ordered and/or Reviewed (chest xray negative), EKG Ordered and/or Reviewed (sinus bradycardia) - Lab Data Result diagrams: 09/29/18 09:40 09/29/18 09:40 Disposition Clinical Impression: Cough, Bronchitis Sinusitis Qualifiers: Sinusitis location: unspecified location Chronicity: acute Recurrence: non- recurrent Qualified Code(s): J01.90 - Acute sinusitis, unspecified Disposition: Home, Self-Care Condition: (1) Good Instructions: Sinusitis (ED), Acute Bronchitis (ED) Additional Instructions: follow up with family DrMaricel in 5 days sooner if worse Prescriptions: Amoxicillin 500Mg Capsule [Amoxil] 500 mg PO TID #30 tab Forms: Patient Portal Access Time of Disposition: 10:42 Quality - Quality Measures Quality Measures: N/A - Blood Pressure Screening Does Patient Have Any of the Following: No, Active Dx of HTN Blood Pressure Classification: Hypertensive Reading Systolic Measurement: 140 Diastolic Measurement: 96 Screening for High Blood Pressure: Patient Exclusion, Hx of HTN [G9744]
[2018-09-29 09:45] LABS: INFLUENZA A NEGATIVE (NEGATIVE); INFLUENZA B NEGATIVE (NEGATIVE); STREP A SCREEN NEGATIVE (NEGATIVE)
[2018-09-29 09:47] LABS: HEMATOCRIT 46.2 % (42.0-52.0); HEMOGLOBIN 15.3 gm/dl (14.0-18.0); MEAN CELL VOLUME 88.7 fl (81-97); MEAN CORPUSCULAR HEMOGLOBIN 29.4 pg (27-33); MEAN CORPUSCULAR HGB CONC 33.1 g/dl (32-36); MEAN PLATELET VOLUME 8.7 fl (7.4-10.4); PLATELET COUNT 224 K/uL (130-400); RED BLOOD COUNT 5.21 M/uL (4.40-5.70); RED CELL DISTRIBUTION WIDTH 14.7 % (11.5-14.5); WHITE BLOOD COUNT W/O DIFF 8.9 K/uL (4.2-12.2)
[2018-09-29 09:54] LABS: BLOOD UREA NITROGEN 22 mg/dL (8-23); CREATININE 0.8 mg/dL (0.7-1.2); EST GLOMERULAR FILTRATION RATE > 60 mL/min
[2018-09-29 09:56] LABS: GLUCOSE,RANDOM 107 mg/dL (74-109)
--- NOTE | 2018-10-01 15:31 | RADIOLOGY REPORT ---
EXAM: CHEST 2 VIEWS CLINICAL HISTORY: Difficulty breathing. TECHNIQUE: Frontal and lateral views of the chest were preformed. COMPARISON: 10/27/2017 FINDINGS: Heart size normal. No pulmonary vascular congestion. No infiltrate or pleural effusion. The osseous structures normal. IMPRESSION: Negative chest examination. JOB NUMBER: [id number] MTDD
== END 2018-09-29 11:06 | disposition home or self-care (01) ==
LOC: ER 08:44
DX: J20.9 Acute bronchitis, unspecified (principal); J01.90 Acute sinusitis, unspecified; R06.02 Shortness of breath; I10 Essential (primary) hypertension; E78.5 Hyperlipidemia, unspecified; I48.91 Unspecified atrial fibrillation; L40.4 Guttate psoriasis; I25.10 Atherosclerotic heart disease of native coronary artery without angina pectoris; Z95.5 Presence of coronary angioplasty implant and graft; Z87.891 Personal history of nicotine dependence
CPT/HCPCS: 71046; 80048; 80053; 80061; 84484; 85027; 85730; 87400; 87880; 93005; 93010; 99284